=== PATIENT | female | born 1985 | race Caucasian/White ===

== ENCOUNTER 2019-12-30 11:07 | Outpatient (CLI) | payer OTHER, SELFPAY ==
--- NOTE | 2019-12-30 11:11 | ECG_ITS ---
Measurements Intervals [place] Rate: 72 P: 35 MN: 181 QRS: 45 QRSD: 101 T: 47 QT: 369 QTc: 405 Interpretive Statements SINUS RHYTHM DELAYED PRECORDIAL R/S TRANSITION BASELINE ARTIFACT- I, II, AVR, AVL, AVF, V6 BORDERLINE ECG Electronically Signed On 12-30-2019 11:40:46 [employer]PERVIS[employer] by Hardik De La Rosa D.O.
[2019-12-30 11:54] LABS: Blood Urea Nitrogen 11 mg/dL (7-17); Calcium 9.7 mg/dL (8.4-10.2); Carbon Dioxide 27 mmol/L (22-30); Chloride 97 mmol/L (98-107); Estimated Glomerular Filt Rate > 60; Glucose 97 mg/dL (65-105); Potassium 4.1 mmol/L (3.4-5.0); Sodium 135 mmol/L (137-145)
== END 2019-12-30 11:08 | disposition home or self-care (01) ==
LOC: ANHSURGERY 11:11
PROVIDERS: Anesthesiology; PCP Family Medicine; Visit Provider Obstetrics & Gynecology
DX: Z51.81 Encounter for therapeutic drug level monitoring (principal); I10 Essential (primary) hypertension; Z79.899 Other long term (current) drug therapy; R94.31 Abnormal electrocardiogram [ECG] [EKG]
CPT/HCPCS: 36415; 80048; 93005

== ENCOUNTER 2020-01-06 01:08 | Day surgery (SDC) | payer OTHER, SELFPAY ==
[2019-12-24 11:02] VITALS: BMI 33.8
[2020-01-06] VITALS (8 sets, daily range): BP systolic 92–139; BP diastolic 65–78; PULSE 65–81; RESP 12–18; TEMP 36.3–36.6; O2SAT 95–100
[2020-01-06] MEDS: LACTATED RINGERS 1,000 ML 30 ML IV CONT ×2 (10:40→13:04)
--- NOTE | 2020-01-06 11:30 | WPDANESEPPF ---
Anes - Initial Pre Proc Eval Procedure: Operation Date: 01/06/20 12:00 Proposed Procedures p Hysteroscopy, Intra Uterine Device Removal - Catherine Garcia MD s Laparoscopic Bilateral Tubal Sterilization with Filschie Clips - Catherine Garcia MD Date/Time: 01/06/20 11:30 Surgeon: Catherine Garcia MD Pre Op Diagnosis: EXCESSIVE & FREQUENT MENSTRUATION, PAIN Patient Data Age: 34 Gender: F Height: 5 ft 2 in Weight: 79.7 kg Allergies Allergy/AdvReac Type Severity Reaction Status Date / Time clindamycin Allergy Severe Anaphylaxis Verified 01/06/20 10:32 Home Medications Medication Instructions Recorded Confirmed Type alprazolam 0.5 mg PO DAILY PRN 11/28/19 12/24/19 History buspirone 10 mg PO BID 11/28/19 01/06/20 History citalopram 20 mg PO DAILY 11/28/19 01/06/20 History hydrocodone-acetaminophen 1 tablet PO Q6H PRN 11/28/19 01/06/20 History lisinopril-hydrochlorothiazide 1 tablet PO DAILY 11/28/19 01/06/20 History omeprazole 20 mg PO DAILY 11/28/19 01/06/20 History magnesium 1 tablet PO HS 12/24/19 01/06/20 History multivitamin 1 tablet PO DAILY 12/24/19 01/06/20 History vitamin B complex 1 tablet PO DAILY 12/24/19 01/06/20 History Patient hx anesthesia problems: none Family hx anesthesia problems: none [facility], [facility] Past Medical History Medical History (Updated 12/03/19 @ 09:58 by Lee Kim MD) Adenomatous colon polyp Anxiety GERD (gastroesophageal reflux disease) Hypertension Anes - Eval Final PreProcedure Day of Procedure 01/06/20 11:30 Patient weight: normal Heart: regular rate and rhythm Lungs: clear to auscultation Airway: Mallampati scale class II Neurological: alert and oriented Last oral intake: >/= 8 hours ASA classification: II Emergent: no Anesthetic plan: proceed Anesthesia type and monitoring: general ETT and standard monitoring Informed Consent: The patient's anesthetic plan and its attendant risks and benefits were discussed with the patient/family/POA. Questions were solicited and answers provided to the satisfaction of the patient/family/POA.
--- NOTE | 2020-01-06 12:00 | WPDHPUPDATE1 ---
History and Physical Update Update Date/Time: 01/06/20 12:00 History and Physical has been reviewed, including an updated exam of the patient. There are NO changes in the patient's condition. Risks, benefits, and alternatives have been discussed and questions answered. Patient agrees to proceed with procedure.
--- NOTE | 2020-01-06 12:11 | PM.OP ---
Procedure Note - Brief Procedure Note - Brief Date of procedure: 01/06/20 Pre-op diagnosis: EXCESSIVE & FREQUENT MENSTRUATION, PAIN desires sterilization Post-op diagnosis: other (abdominal adhesions) Procedure performed: L/S BTL with Filshie clips, lysis of adhesions, IUD removal Anesthesia: CHRISTIANO Surgeon: Catherine Garcia MD Estimated blood loss (mL): 10 Drains: No Packing: No Pathology: none sent Complications: No immediate complications Condition: stable Disposition: PACU Findings: Normal uterus, tubes, ovaries, liver, appendix; multiple adhesions of omentum to anterior abdominal wall; IUD removed intact
--- NOTE | 2020-01-06 12:44 | SUR.OPER ---
EBL:5CC
[2020-01-06] MEDS: BUPIVACAINE/EPINEPHRINE 0.5% 10 ML VIAL INFILTRATE (12:48)
[2020-01-06] MEDS: KETOROLAC 30 MG/ML VIAL (*BKC) IM (12:49)
[2020-01-06] MEDS: HYDROMORPHONE HCL 1 MG/ML INJ 0.5 MG IV PUSH ×4 (13:23→14:02)
--- NOTE | 2020-01-06 14:21 | OP_ITS ---
DATE OF PROCEDURE: 01/06/2020 PREOPERATIVE DIAGNOSES: Menometrorrhagia, desires sterilization, pelvic pain. POSTOPERATIVE DIAGNOSES: Menometrorrhagia, desires sterilization, pelvic pain plus abdominal adhesions. PROCEDURE PERFORMED: Laparoscopic bilateral tubal occlusion with Filshie clips, lysis of adhesions, removal of IUD. ANESTHESIA: General endotracheal tube. ESTIMATED BLOOD LOSS: 10 mL. COMPLICATIONS: None. FINDINGS: Multiple adhesions of the omentum to the anterior abdominal wall. Uterus with 1 anterior fibroid, otherwise normal. Normal fallopian tubes and ovaries. Appendix and liver normal. Gallbladder not visualized. INDICATIONS: This is a 34-year-old who had an IUD for control. She had significant pain and irregular bleeding since it was placed, so she opted to have her IUD removed and tubes tied instead and signed consent after the risks, benefits, complications, and alternatives were discussed. DESCRIPTION OF PROCEDURE: For the procedure, she was taken to the operating room where general anesthesia was obtained. She was prepared and draped in the normal sterile fashion in the dorsal lithotomy position. Marcaine was injected infraumbilically and a 5 mm skin incision was made in the infraumbilical fold with a scalpel. A 5 mm non-bladed trocar was then placed with a camera in the trocar under direct visualization into the peritoneal cavity. Insufflation was begun and she was placed in Trendelenburg. Due to the multiple omental adhesions, decision was made to remove some of those adhesions, so a 5 mm trocar was placed in the right lower quadrant under direct visualization and the Harmonic Scalpel was made ready and used to remove the adhesions completely. Visualization of the pelvis was much better at that point and revealed the findings as noted above. An 8 mm trocar was then placed in the midline suprapubic area under direct visualization and a Filshie clip was placed on the mid isthmic portion of each fallopian tube, making sure the entire circumference of the tube was contained in the clip. All operative sites were found to be hemostatic. The pneumoperitoneum was allowed to escape. All trocars were removed and all 3 skin incisions were closed using 4-0 Monocryl in subcuticular fashion. She tolerated the procedure well. Attention was then turned to the vagina where a speculum was placed. The IUD string was easily visualized. It was grasped with a ring forceps and gentle traction was applied and the IUD was removed intact easily. The speculum was removed. She tolerated the procedure well. Sponge, lap, needle, and instrument counts were correct x2, and she was taken to the recovery room in stable condition. D I MT: Ghada
== END 2020-01-06 14:50 | disposition home or self-care (01) ==
PROVIDERS: PCP Family Medicine; Visit Provider Obstetrics & Gynecology
PROC: 0U5B8ZZ Destruction of Endometrium, Via Natural or Artificial Opening Endoscopic (ICD-10-PCS; CPT 58563; principal; 2020-01-06 12:00)
PROC: (CPT 58671; 2020-01-06 12:00)
DX: N92.1 Excessive and frequent menstruation with irregular cycle (principal); Z30.2 Encounter for sterilization; Z30.432 Encounter for removal of intrauterine contraceptive device; R10.2 Pelvic and perineal pain; N73.6 Female pelvic peritoneal adhesions (postinfective); I10 Essential (primary) hypertension; K21.9 Gastro-esophageal reflux disease without esophagitis; F41.9 Anxiety disorder, unspecified
CPT/HCPCS: 58671; 58301; A9270; J0131; J1100; J1170; J1885; J2250; J2405; J2704; J3010; J7030; J7120

== ENCOUNTER 2020-04-22 06:38 | Outpatient (CLI) | payer OTHER, SELFPAY ==
--- NOTE | ~2020-04-22 | XR_ITS ---
XR lumbar spine 2-3V 04/22/2020 07:29 Indication: Acute low back pain Procedure: 3 views lumbar spine Comparison: No prior studies for comparison. Findings: Vertebral body heights are maintained. Normal lumbar lordosis. There is disc narrowing at L 5-S1. Pedicles intact. No evidence for spondylolysis or spondylolisthesis. Sacral foramen are symmetr ic. There are surgical changes consistent with cholecystectomy and tubal ligation. Visualized bowel g as is nonobstructive. Impression: 1: Mild lumbar spondylosis. Reviewed, dictated and finalized at location A. Impression: 1: Mild lumbar spondylosis.
== END 2020-04-22 06:39 | disposition home or self-care (01) ==
LOC: ANHIMG 06:43
PROVIDERS: PCP Physician Assistant; Visit Provider Physician Assistant
DX: M47.896 Other spondylosis, lumbar region (principal)
CPT/HCPCS: 72100

== ENCOUNTER 2021-01-19 09:01 | Outpatient (RCR) | payer OTHER, SELFPAY ==
--- NOTE | 2021-01-19 11:43 | PTOPEVAL ---
Thank you for referring Francisca Roth to [facility].? The patient is scheduled to be seen for therapy? 1-2 x/week for 4 weeks for 5 additional therapy visits. Please review, sign, date and return this plan of care PAVITHRA. I agree with and certify that the following plan of care is medically necessary. Referring Physician Date Attending Provider: Misti Mars, PA Evaluation Information Problem Diagnosis chronic back pain Onset 10 yrs Cause unknown Subjective Information Reports she needs therapy to Query Text:As Reported By Patient/ have insurance approve her Family injection. She states she needs surgery on her back. She states she is performing her HEP, but min to no relief. She uses ice/heat and pain medication/ muscle relaxors for her pain. She has received massage without relief. She also has been seen by a chiro, but her insurance does not cover cost. States she pushes threw the pain because she has to perform IADL's. She has increased pain with standing, sitting, lifting task. She c /o her SI popping. She has this popping with squating or walking. States she is unable to stop at home because of the pain due to having to take care of the kids and home. Previous Treatments Previous Treatments For This Problem 2019 at this facility and Jul-Aug 2020 at [facility] Pain Assessment back pain 9/10 Pain Frequency Chronic,Continuous Lowest Pain Intensity 7 Greatest Pain Intensity 10 Pain Aggravating Factors ADL's,Exercise/Activity, Lifting,Prolonged Position, Sitting,Walking,Weight Bearing /Standing Pain Behaviors Anxious Cervical and Lumbar ROM Lumbar ROM Lateral Flexion distal thigh Query Text:Active Hands to: Lumbar Comments 25% flex, 50% ext and 75% lateral flex pain with all trunk motions Cervical and Lumbar Muscle Testing Upper Abdominal Strength 3 Fair Upper Back Extension 3 Fair Lower Back Extension 3 Fair Lumbar Functional Strength Comment
--- NOTE | 2021-02-04 10:04 | PCPTNOTE ---
Admitting Provider: Attending Provider: Misti Mars, CAMI Patient:Francisca Roth Date of :1985 Discharge Note Patient has chosen not returned for any further treatments since initial evaluation on 01/19/2021, therefore she will be discharged at this time. The goals have been not met due to she was seen for 1 visit only. Thank you for referring this patient to [facility]. Please review, sign, date and return this discharge summary PAVITHRA. I have been updated about the patient's current status and I agree with discharge from the above service at this time. Referring Physician Date
== END 2021-02-04 10:29 | disposition home or self-care (01) ==
LOC: ANHPT 09:01
PROVIDERS: PCP Physician Assistant; Visit Provider Physician Assistant
DX: G89.29 Other chronic pain (principal)
CPT/HCPCS: 97110; 97162

== ENCOUNTER 2021-02-18 08:23 | Outpatient (CLI) | payer OTHER, SELFPAY ==
--- NOTE | 2021-02-18 11:30 | NEURO_ITS ---
Impression: # Complains of numbness of hands. #no evidence of underlying motor or sensory neuropathy. # Bilateral Carpal Tunnel Syndrome. # No ulnar neuropathy. # Normal needle/EMG exam. # Clinical correlation recommended. Nerve Conduction Studies Anti Sensory Summary Table Stim Site NR Peak (ms) P-T Amp (?V) Site1 Site2 Delta-P (ms) Dist (cm) Jaspal (m/s) Left Median Anti Sensory (2-3nd Digit) Wrist 4.3 26.5 Wrist 2-3nd Digit 4.3 14.0 33 Wrist 5.3 6.2 Wrist 2-3nd Digit 4.3 14.0 33 Right Median Anti Sensory (2-3nd Digit) Wrist 4.9 29.1 Wrist 2-3nd Digit 4.9 14.0 29 Wrist 5.2 26.1 Wrist 2-3nd Digit 4.9 14.0 29 Left Radial Anti Sensory (Base 1st Digit) Wrist 1.5 40.5 Wrist Base 1st Digit 1.5 0.0 Right Radial Anti Sensory (Base 1st Digit) Wrist 2.1 33.0 Wrist Base 1st Digit 2.1 0.0 Left Ulnar Anti Sensory (5th Digit) Wrist 2.4 79.1 Wrist 5th Digit 2.4 14.0 58 Right Ulnar Anti Sensory (5th Digit) Wrist 2.1 22.4 Wrist 5th Digit 2.1 14.0 67 Motor Summary Table Stim Site NR Onset (ms) O-P Amp (mV) Site1 Site2 Delta-0 (ms) Dist (cm) Jaspal (m/s) Left Median Motor (Abd Poll Brev) Wrist 5.2 0.4 Elbow Wrist 4.3 26.0 60 Elbow 9.5 0.7 Right Median Motor (Abd Poll Brev) Wrist 4.1 2.1 Elbow Wrist 5.7 25.0 44 Elbow 9.8 0.9 Left Ulnar Motor (Abd Dig Minimi) Wrist 2.3 7.6 A Elbow Wrist 4.3 27.0 63 A Elbow 6.6 6.7 Right Ulnar Motor (Abd Dig Minimi) Wrist 2.0 7.2 A Elbow Wrist 4.5 27.0 60 A Elbow 6.5 6.5 F Wave Studies NR F-Lat (ms) L-R F-Lat (ms) Left Median (Mrkrs) (Abd Poll Brev) 26.67 0.82 Right Median (Mrkrs) (Abd Poll Brev) 27.49 0.82 Left Ulnar (Mrkrs) (Abd Dig Min) 24.53 0.14 Right Ulnar (Mrkrs) (Abd Dig Min) 24.39 0.14 EMG Side Muscle Nerve Root Ins Act Fibs Amp Dur Recrt Comment Right 1stDorInt Ulnar C8-T1 Nml Nml Nml Nml Nml Right Ext Indicis Radial (Post Int) C7-8 Nml Nml Nml Nml Nml Right Ext Digitorum Radial (Post Int) C7-8 Nml Nml Nml Nml Nml Right BrachioRad Radial C5-6 Nml Nml Nml Nml Nml Right PronatorTeres Median C6-7 Nml Nml Nml Nml Nml Right Abd Poll Brev Median C8-T1 Nml Nml Nml Nml Nml Left 1stDorInt Ulnar C8-T1 Nml Nml Nml Nml Nml Left Ext Indicis Radial (Post Int) C7-8 Nml Nml Nml Nml Nml Left Ext Digitorum Radial (Post Int) C7-8 Nml Nml Nml Nml Nml Left BrachioRad Radial C5-6 Nml Nml Nml Nml Nml Left PronatorTeres Median C6-7 Nml Nml Nml Nml Nml Left Abd Poll Brev Median C8-T1 Nml Nml Nml Nml Nml MTDD
== END 2021-02-18 08:24 | disposition home or self-care (01) ==
LOC: ANHNEURO 08:25
PROVIDERS: PCP Physician Assistant; Visit Provider Physician Assistant
DX: G56.03 Carpal tunnel syndrome, bilateral upper limbs (principal)
CPT/HCPCS: 95886; 95911

== ENCOUNTER 2021-08-09 08:15 | Outpatient (RCR) | payer OTHER, SELFPAY ==
--- NOTE | 2021-07-20 09:48 | PTOPEVAL ---
PHYSICAL THERAPY EVALUATION AND PLAN OF CARE Thank you for referring Francisca Roth to [facility].? The patient is scheduled to be seen for therapy? 2x/week for 6 weeks. Please review, sign, date and return this plan of care PAVITHRA. I agree with and certify that the following plan of care is medically necessary. Referring Physician Date Attending Provider: Kacy Goodrich Evaluation Outpatient Past Medical History Cardiovascular History Hx Hypertension Yes Gastrointestinal History Hx Cholecystectomy Yes Hx Gastroesophageal Reflux Disease Yes Hx Irritable Bowel Yes Hx Polyps Yes: MULTIPLE POLYPS IN PAST Genitourinary History Hx Genitourinary Disorders No Significant History Musculoskeletal History Hx Back Pain Yes HEENT History Hx Sinus Problems Yes Reproductive History Hx Abnormal Uterine Bleeding Yes Hx Section Yes Hx Other Reproductive Disorders Yes: CURRENT IUD ISSUES, SEVERE PAIN AND BLEEDING SINCE JANUARY 2019 Psychosocial History Hx Anxiety Yes Pain History Has Past Pain Affected Your Daily Life Yes: ABDOMINAL PAIN/BACK PAIN History of Long-Term Prescription Pain Yes: HYDROCODONE Medication Use (Opiates) Diagnosis low back pain, Onset 3weeks Subjective Information has bilateral lower back pain Query Text:As Reported By Patient/ that goes up and does and goes Family to her feet. Cannot sit for too long and cannot stand for too long. Numbness goes down the right foot. Constant. Not related to any injury - on and off for 5 years but after carrying twins it was exacerbated. Does get cortisone injections and she states that this is the only thing that helps her symptoms. Self Report Pain Assessment Bilateral Spine, Lumbar Reported Pain Level 6 Pain Description Aching,Spasms,Tightness Pain Frequency Chronic,Continuous Lowest Pain Intensity 6 Greatest Pain Intensity 10 Pain Aggravating Factors Bending,Changing Position, Exercise/Activity,Palpation, Prolonged Position,Sitting, Walking,Weight Bearing/ Standing Pain Behaviors None Pain Score Pain Score 6: Self Report Interventions Used Interventions Used By Clinicians Exercise,Manual Therapy
--- NOTE | 2021-07-21 13:35 | PCPTNOTE ---
Patient called & cancelled scheduled appointment this date due to family emergency.
--- NOTE | 2021-07-28 08:03 | PCPTNOTE ---
Patient did not show up for scheduled appointment this date.
--- NOTE | 2021-07-29 07:31 | PCPTNOTE ---
Patient called & cancelled scheduled appointment this date due to having two sick kids running a fever
--- NOTE | 2021-08-05 08:30 | PCPTNOTE ---
Patient called & cancelled scheduled appointment this date due to not feeling well and hurting.
--- NOTE | 2021-08-11 11:50 | PCPTNOTE ---
Patient called & cancelled scheduled appointment this date due to having to take child to school.
--- NOTE | 2021-08-12 09:07 | PCPTNOTE ---
Patient called & cancelled scheduled appointment this date due to family obligations/emergency.
--- NOTE | 2021-08-16 08:28 | PCPTNOTE ---
Patient did not show up for scheduled appointment this date.
--- NOTE | 2021-08-18 13:55 | PCPTNOTE ---
Patient called & cancelled scheduled appointment this date because her back hurts.
--- NOTE | 2021-08-23 08:06 | PCPTNOTE ---
Patient called & cancelled scheduled appointment this date. no reason provided.
--- NOTE | 2021-08-25 07:57 | PCPTNOTE ---
Patient did not show up for scheduled appointment this date.
--- NOTE | 2021-08-30 07:52 | PCPTNOTE ---
Patient did not show up for scheduled appointment this date.
--- NOTE | 2021-09-01 13:43 | PCPTNOTE ---
Patient did not show up for scheduled appointment this date.
--- NOTE | 2021-09-01 13:50 | PCPTNOTE ---
PHYSICAL THERAPY DISCHARGE NOTE Attending Provider: Kacy Goodrich Patient:Francisca Roth Date of :1985 Patient has not returned for any further treatments since 08/09/2021, therefore will be discharged at this time. Patient?s initial visit was on 07/20/2021 and had a total of 4 visits and no showed/cancelled 12 visits. Thank you for referring this patient to [facility]. Please review, sign, date and return this discharge summary PAVITHRA. I have been updated about the patient's current status and I agree with discharge from the above service at this time. Referring Physician Date
== END 2021-09-01 15:53 | disposition home or self-care (01) ==
LOC: ANHPT 08:15
PROVIDERS: PCP Physician Assistant
DX: M46.1 Sacroiliitis, not elsewhere classified (principal)
CPT/HCPCS: 97110; 97140; 97162

== ENCOUNTER 2021-11-02 10:00 | Outpatient (RCR) | payer OTHER, SELFPAY ==
--- NOTE | 2021-10-05 16:48 | PTOPEVAL ---
PHYSICAL THERAPY EVALUATION AND PLAN OF CARE Thank you for referring Francisca Roth to [facility].? The patient is scheduled to be seen for therapy? 1x/week for 6 weeks. Please review, sign, date and return this plan of care PAVITHRA. I agree with and certify that the following plan of care is medically necessary. Referring Physician Date Evaluation Diagnosis lower back pain Onset chronic Subjective Information history of chronic back pain. Query Text:As Reported By Patient/ Was doing therapy for this Family several weeks ago. nothing has changed except that she got some cortisone injections into her SIJ so she feels a little better and she has lost 15lb which she thinkgs has helped. Self Report Pain Assessment Back Reported Pain Level 6 Pain Description Spasms,Tender on Palpation Lowest Pain Intensity 4 Greatest Pain Intensity 10 Pain Score Pain Score 6: Self Report Interventions Used Interventions Used By Clinicians Exercise,Manual Therapy Techniques Cervical and Lumbar ROM Lumbar ROM Lumbar Flexion Active Mid Rai Query Text:Hands to: Lumbar Extension (0-40) 10 Query Text:Active in Degrees Lateral Rotation Right (0-45) 35 Query Text:Active in Degrees Lateral Rotation Left (0-45) 25 Query Text:Active in Degrees Lower Extremity Muscle Strength Testing General Lower Extremity Strength Gross Lower Extremity Strength single leg stand: right = good weight shift; left = left hip drop Hip Strength Bilateral Hip Flexion Strength 4+ Good + Hip Extension Strength 3 Fair Hip Abduction Strength 4- Good - Hip Medial Rotation Strength 4- Good - Hip Lateral Rotation Strength 4- Good - Knee Strength Bilateral Knee Flexion Strength 4+ Good + Knee Extension Strength 4+ Good + Muscle Length Testing Muscle Length Testing Piriformis w/Hip Flexion >90 Degrees (R) Severe Tightness,(L) Severe Tightness Left Hamstring Length -50 Query Text:(90 - 90 Position) Right Hamstring Length -50 Query Text:(90 - 90 Position) Right Prone Knee Flexor Muscle Length ( 90 degrees) Left Prone Knee Flexor Muscle Length ( 90 degrees) Muscle Length Testing Comments decreased QL length Palpation Assessment Palpation Palpation severe tightness noted throughout bilateral glutes,
--- NOTE | 2021-10-11 14:23 | PCPTNOTE ---
Patient called & cancelled scheduled appointment this date. rescheduled for 10/13.
--- NOTE | 2021-10-13 15:54 | PCPTNOTE ---
Patient did not show up for scheduled appointment this date. Called and left voicemail reminding her of the attendance policy.
--- NOTE | 2021-10-25 11:24 | PCPTNOTE ---
Patient called & cancelled scheduled appointment this date due to sick children.
--- NOTE | 2021-11-08 15:55 | PCPTNOTE ---
Patient called & cancelled scheduled appointment this date due to sick children
--- NOTE | 2021-11-15 10:52 | PCPTNOTE ---
Patient did not show up for scheduled appointment this date.
--- NOTE | 2021-12-07 10:08 | PCPTNOTE ---
PHYSICAL THERAPY DISCHARGE NOTE Patient:Francisca Roth Date of :1985 Patient has not returned for any further treatments since 11/02/2021, therefore she will be discharged at this time. Patient?s initial visit was on 10/05/2021 had a total of 3 visits and no showed or cancelled 4 appointments. The goals were not assessed. Thank you for referring this patient to [facility]. Please review, sign, date and return this discharge summary PAVITHRA. I have been updated about the patient's current status and I agree with discharge from the above service at this time. Referring Physician Date
== END 2021-12-07 14:01 | disposition home or self-care (01) ==
LOC: ANHPT 10:00
PROVIDERS: PCP Physician Assistant
DX: M46.1 Sacroiliitis, not elsewhere classified (principal)
CPT/HCPCS: 97110; 97140; 97162

== ENCOUNTER 2022-02-14 07:30 | Outpatient (RCR) | payer OTHER, SELFPAY ==
--- NOTE | 2021-12-28 08:19 | PTOPEVAL ---
PHYSICAL THERAPY EVALUATION AND PLAN OF CARE Thank you for referring Francisca Roth to [facility].? The patient is scheduled to be seen for therapy? 1x/week for 6weeks. Please review, sign, date and return this plan of care PAVITHRA. I agree with and certify that the following plan of care is medically necessary. Referring Physician Date Attending Provider: Kacy Goodrich Evaluation Outpatient Past Medical History Cardiovascular History Hx Hypertension Yes Gastrointestinal History Hx Cholecystectomy Yes Hx Gastroesophageal Reflux Disease Yes Hx Irritable Bowel Yes Hx Polyps Yes: MULTIPLE POLYPS IN PAST Musculoskeletal History Hx Back Pain Yes HEENT History Hx Sinus Problems Yes Reproductive History Hx Abnormal Uterine Bleeding Yes Hx Section Yes Hx Other Reproductive Disorders Yes: CURRENT IUD ISSUES, SEVERE PAIN AND BLEEDING SINCE JANUARY 2019 Psychosocial History Hx Anxiety Yes Pain History Has Past Pain Affected Your Daily Life Yes: ABDOMINAL PAIN/BACK PAIN History of Long-Term Prescription Pain Yes: HYDROCODONE Medication Use (Opiates) Diagnosis low back pain Onset chronic Subjective Information Francisca has been experiencing Query Text:As Reported By Patient/ chronic back pain and she has Family worked with us before. She reports today that her overall pain does feel better. Her symptoms include a lot of tightness through the low back and glutes. She feels like she cannot engage her core/ abdominals and that if she could learn how to she would feel a lot better. Self Report Pain Assessment Bilateral Back Reported Pain Level 5 Pain Description Tightness Pain Frequency Chronic,Continuous Lowest Pain Intensity 2 Greatest Pain Intensity 7 Pain Aggravating Factors Exercise/Activity,Walking, Weight Bearing/Standing Pain Score Pain Score 5: Self Report Lumbar ROM Lumbar Flexion (0-90) 35 Query Text:Active in Degrees Lumbar Flexion Active Mid Rai Query Text:Hands to: Lumbar Extension (0-40) 20 Query Text:Active in Degrees Lateral Rotation Right (0-45) 35 Query Text:Active in Degrees Lateral Rotation Left (0-45) 35 Query Text:Active in Degrees
--- NOTE | 2022-01-03 10:25 | PCPTNOTE ---
Patient called & cancelled scheduled appointment this date due to being up all night with the kids.
--- NOTE | 2022-01-10 07:33 | PCPTNOTE ---
Patient called & cancelled scheduled appointment this date due to a family issue.
--- NOTE | 2022-01-17 09:04 | PCPTNOTE ---
Patient called & cancelled scheduled appointment this date. She rescheduled for next week.
--- NOTE | 2022-01-24 11:51 | PCPTNOTE ---
Patient did not show up for scheduled appointment this date.
--- NOTE | 2022-01-26 08:23 | PCPTNOTE ---
Patient called & cancelled scheduled appointment this date due to having a sick child at home. She rescheduled the appt.
--- NOTE | 2022-02-14 09:30 | PCPTNOTE ---
Patient did not show up for scheduled appointment this date.
--- NOTE | 2022-02-14 13:21 | PCPTNOTE ---
PHYSICAL THERAPY DISCHARGE NOTE Attending Provider: Kacy Goodrich Patient:Francisca Roth Date of :1985 Francisca was initially seen on 12/28/2021 for evaluation of low back pain/SIJ pain. She has participated in 2 treatment visits with the last visit on 01/31/2022. She did cancel or no show 8 appointments and has not returned since her last visit. She has been non-compliant with care plan and with attendance policy, therefore, she will be discharged at this time. Thank you for referring this patient to [facility]. Please review, sign, date and return this discharge summary PAVITHRA. I have been updated about the patient's current status and I agree with discharge from the above service at this time. Referring Physician Date
== END 2022-02-14 16:59 | disposition home or self-care (01) ==
LOC: ANHPT 07:30
PROVIDERS: PCP Physician Assistant
DX: M46.1 Sacroiliitis, not elsewhere classified (principal)
CPT/HCPCS: 97110; 97112; 97140; 97162

== ENCOUNTER 2022-02-21 07:00 | Outpatient (CLI) | payer OTHER, SELFPAY ==
--- NOTE | ~2022-02-21 | MR_ITS ---
EXAMINATION: MR lumbar spine wo [facility] EXAM DATE: 02/21/2022 07:52 INDICATION: Chronic back pain. TECHNIQUE: Multi-sequential, multiplanar MR images of the lumbar spine were obtained without contrast . Sagittal T1, T2, T2 fat saturation images. Axial T2 weighted images. There is no prior study for comparison. FINDINGS: There is moderate disc disease of the L5-S1 level with endplate degenerative signal change. The vertebral body and disc heights are otherwise well maintained. 3 mm retrolisthesis L5 on S1. The vertebral bodies are otherwise aligned. The conus medullaris terminates at the L1/2 level and has no rmal signal intensity and morphology. There are no suspicious marrow signal abnormalities. Paraspina l soft tissue is unremarkable. Level by level evaluation: T12-L1: Disc does not extend beyond the endplate margin. Facet arthropathy: None. Neural foraminal stenosis: No stenosis. Central canal stenosis: No stenosis. L1-L2: Disc does not extend beyond the endplate margin. Facet arthropathy: Mild. Neural foraminal stenosis: No stenosis. Central canal stenosis: No stenosis. L2-L3: Disc does not extend beyond the endplate margin. Facet arthropathy: Mild. Neural foraminal stenosis: No stenosis. Central canal stenosis: No stenosis. L3-L4: Disc does not extend beyond the endplate margin. Facet arthropathy: Mild. Neural foraminal stenosis: No stenosis. Central canal stenosis: No stenosis. L4-L5: There is a mild diffuse disc bulge. Facet arthropathy: Mild to moderate. Neural foraminal stenosis: No stenosis. Central canal stenosis: No stenosis. L5-S1: There is a mild to moderate diffuse disc bulge. Facet arthropathy: Mild to moderate. Neural foraminal stenosis: Mild to moderate bilateral. Central canal stenosis: No stenosis. IMPRESSION: 1. L5-S1 moderate disc disease, mild to moderate arthropathy and neural foraminal stenosis. 2. Otherwise mild arthropathy. Reviewed, dictated and finalized at location B. IMPRESSION: 1. L5-S1 moderate disc disease, mild to moderate arthropathy and neural forami nal stenosis. 2. Otherwise mild arthropathy.
== END 2022-02-21 07:01 | disposition home or self-care (01) ==
PROVIDERS: PCP Physician Assistant; Visit Provider Physician Assistant
DX: G89.29 Other chronic pain (principal); M51.36 Other intervertebral disc degeneration, lumbar region
CPT/HCPCS: 72148

== ENCOUNTER 2022-07-06 15:33 | Outpatient (CLI) | payer OTHER, SELFPAY ==
--- NOTE | ~2022-07-06 | US_ITS ---
EXAMINATION: US pelvic complete w TV DATE: 07/06/2022 16:44 INDICATION: Irregular excessive menstruation Comparison:No prior studies for comparison. TECHNIQUE: Multiple transabdominal and endovaginal sonographic images of the pelvis performed. FINDINGS: The uterus measures 8.3 x 4.3 x 4.8 cm. The endometrial complex measures 11 mm. The right ovary measures 4 x 2.3 x 2.4 cm and the left ovary measures 3 x 2.9 x 2.6 cm. There are sm all follicles in each ovary. Normal doppler signal in both ovaries. There is no free fluid in the pelvis. There are no abnormal masses seen on either side. IMPRESSION: 1. Unremarkable pelvic ultrasound. Reviewed, dictated and finalized at location A.
== END 2022-07-06 15:34 | disposition home or self-care (01) ==
PROVIDERS: PCP Physician Assistant; Visit Provider Student in an Organized Health Care Education/Training Program
DX: N94.6 Dysmenorrhea, unspecified (principal); N92.1 Excessive and frequent menstruation with irregular cycle
CPT/HCPCS: 76830; 76856

== ENCOUNTER 2022-10-17 07:23 | Outpatient (RCR) | payer OTHER, SELFPAY | END 2023-01-02 08:41 | disposition home or self-care (01) | LOC: ANHPT 07:23 | PROVIDERS: PCP Physician Assistant; Visit Provider Physician Assistant | DX: G89.29 Other chronic pain (principal) | CPT/HCPCS: 99199 ==

== ENCOUNTER 2022-10-19 08:11 | Outpatient (CLI) | payer OTHER, SELFPAY ==
[2022-10-19 10:07] LABS: Anion Gap 8 mmol/L (8-16); Blood Urea Nitrogen 15 mg/dL (7-17); Calcium 9.2 mg/dL (8.4-10.2); Carbon Dioxide 24 mmol/L (22-30); Chloride 102 mmol/L (98-107); Estimated Glomerular Filt Rate > 60; Glucose 137 mg/dL (65-110); Potassium 3.9 mmol/L (3.4-5.0); Sodium 134 mmol/L (137-145)
== END 2022-10-19 08:12 | disposition home or self-care (01) ==
LOC: ANHSURGERY 08:17
PROVIDERS: Anesthesiology; PCP Physician Assistant; Visit Provider Surgery
DX: Z79.899 Other long term (current) drug therapy (principal); Z01.818 Encounter for other preprocedural examination
CPT/HCPCS: 36415; 80048

== ENCOUNTER 2022-12-28 08:23 | Outpatient (CLI) | payer OTHER, SELFPAY ==
--- NOTE | ~2022-12-28 | XR_ITS ---
EXAMINATION: XR lumbar spine 2-3V DATE: 12/28/2022 12:53 INDICATION: Lumbar radiculopathy. TECHNIQUE: 3 views of lumbar spine were obtained. COMPARISON: Lumbar spine radiographs 04/22/2020 FINDINGS: There is 7 degrees dextrocurvature of lumbar spine. Vertebral body heights are normal. Ther e is severely decreased disc height at L5-S1. There is mild facet joint osteoarthritis in lumbar spin e. Tubal ligation clips are noted. Surgical clips in the right upper quadrant are likely from cholecy stectomy. IMPRESSION: 1. Severe lower lumbar spondylosis. Reviewed, dictated and finalized at location A. HER COATER
--- NOTE | ~2022-12-28 | XR_ITS ---
EXAMINATION: XR thoracic spine 2V DATE: 12/28/2022 12:53 INDICATION: Thoracic radiculopathy. TECHNIQUE: 3 views of thoracic spine were obtained. COMPARISON: None. FINDINGS: There is 3 degrees dextrocurvature of upper thoracic spine. Vertebral body heights are norm al. There is mildly decreased disc height at T3-T4 and T9-T10. There are endplate osteophytes at most levels. Surgical clips in the right upper quadrant are likely from cholecystectomy. IMPRESSION: 1. Mild thoracic spondylosis. Reviewed, dictated and finalized at location A. F PILOT
== END 2022-12-28 08:24 | disposition home or self-care (01) ==
PROVIDERS: PCP Physician Assistant; Visit Provider Pain Medicine Interventional Pain Medicine
DX: M47.24 Other spondylosis with radiculopathy, thoracic region (principal); M47.26 Other spondylosis with radiculopathy, lumbar region
CPT/HCPCS: 72070; 72100

== ENCOUNTER 2024-02-01 08:29 | Outpatient (CLI) | payer OTHER, MEDICAID, SELFPAY ==
--- NOTE | ~2024-02-01 | XR_ITS ---
Thoracic spine: Clinical Indication: Radiculopathy AP and lateral views were performed. No fracture is seen. There is normal alignment of the vertebrae. The intervertebral disc spaces appe ar normal. Paravertebral soft tissues appear normal. Impression: No significant abnormalities noted. Reviewed, dictated and finalized at [facility]. IZING LINE OPERATOR Impression: No significant abnormalities noted.
--- NOTE | ~2024-02-01 | XR_ITS ---
Lumbosacral Spine: AP and lateral views Clinical History: Pain Findings: The normal lordotic curve is maintained. The vertebral bodies and posterior elements are i ntact. The intervertebral disc spaces are preserved. There is mild to moderate facet arthropathy at the lower lumbar spine. The sacroiliac joints are normally outlined. Impression: [id number] facet arthropathy lower lumbar spine. Reviewed, dictated and finalized at location . OSITE LAMINATOR Impression: [id number] facet arthropathy lower lumbar spine.
--- NOTE | ~2024-02-01 | CT_ITS ---
EXAMINATION: CT sinus wo con DATE: 02/01/2024 09:00 INDICATION: Chronic sinusitis TECHNIQUE: Computed tomography (CT) of the paranasal sinuses was performed without intravenous contra st. The dose-length product (DLP) was 324.57 mGy-cm. Iterative reconstruction was used. COMPARISON: None FINDINGS: There is normal development and pneumatization of the paranasal sinuses. There is trace muc osal thickening of the frontal sinuses. There is moderate opacification of the ethmoidal air cells. T here is mild to moderate mucosal thickening in the right maxillary sinus. A 5 mm mucous retention cys t or polyp is noted in the inferior/posterior aspect of the left maxillary sinus. There is trace muco alex thickening of the left maxillary sinus. The right ostiomeatal complex is patent. The left ostiome atal complex is occluded. There are 6 mm of rightward deviation of the nasal septum. Visualized soft tissues are unremarkable. IMPRESSION: 1. Sinus disease as detailed above. Reviewed, dictated and finalized at location L. STOS PIPE SUPERVISOR
== END 2024-02-01 08:30 | disposition home or self-care (01) ==
LOC: ANHIMG 08:36
PROVIDERS: PCP Physician Assistant; Referring Provider Pain Medicine Interventional Pain Medicine; Visit Provider Otolaryngology
DX: J32.9 Chronic sinusitis, unspecified (principal); M54.17 Radiculopathy, lumbosacral region; M54.14 Radiculopathy, thoracic region
CPT/HCPCS: 70486; 72072; 72100